=== PATIENT | female | born 1960 | race African-American/Black ===

== ENCOUNTER 2017-03-15 12:06 | Emergency (ER) ==
[2017-03-15 12:11] VITALS: BP 123/84; TEMP 97; BMI 30.7
--- NOTE | 2017-03-15 12:23 | ED.PDOC ---
General ED Provider: Dr. VERONIQUE GARCÍA-ER Chief Complaint: Eye Problem Stated Complaint: my eye is sore and red--this is the 3rd time this has happened --im afraid i have a corneal ulcer and i usually get vigimox for it-- no foreign landers sensation Time Seen by Physician: 12:22 Mode of Arrival: Walk-In Information Source: Patient Exam Limitations: No limitations Nursing and Triage Documentation Reviewed and Agree: Yes EENT Complaint Exam - Eye Complaint/Exam Onset/Duration: several hours Symptoms Are: Still present Timing: Constant Initial Severity: Mild Current Severity: Mild Location: Discreet, Left Character: Reports: Dull. Denies: Sharp, Throbbing, Foreign body sensation Aggravating: Denies: None, Light, Eye drops, Contact lens, Blinking, Ultraviolet exposure Alleviating: Reports: None Associated Signs and Symptoms: Denies: Photophobia, Clear drainage, Purulent drainage, Vision impairment, Fever, Swelling Related History: Reports: Similar episode Eye Surgical History: Reports: None Penetrating Injury Risk Factors: None Globe Rupture Risk Factors: None Acute Glaucoma Risk Factors: None Optic Artery Occlusion Risk Factors: None Visual Field: Normal Extraocular Movement: Normal Orbit Findings: Normal Globe Findings: Intact Lid Findings: Normal Conjunctival Findings: Red, Exudate Corneal Findings: Clear Fluorescein Uptake: No Fundi: Normal Slit Lamp Used: No Differential Diagnoses: Conjunctivitis, Keratitis, Uveitis Review of Systems - Review Of Systems Constitutional: Reports: No symptoms Eyes: Reports: Drainage, Inflammation, Pain, Glasses. Denies: Foreign body sensation, Photophobia, Previous injury, Shadows, Tunnel vision, Contact lenses , Other Ears, Nose, Mouth, Throat: Reports: No symptoms Respiratory: Reports: No symptoms Cardiac: Reports: No symptoms GI: Reports: No symptoms : Reports: No symptoms Musculoskeletal: Reports: No symptoms Skin: Reports: No symptoms Neurological: Reports: No symptoms Endocrine: Reports: No symptoms Hematologic/Lymphatic: Reports: No symptoms All Other Systems: Reviewed and Negative Past Medical History - Past Medical History Previously Healthy: Yes Endocrine: Reports: Unknown Cardiovascular: Reports: Unknown Respiratory: Reports: Unknown Hematological: Reports: Unknown Gastrointestinal: Reports: Unknown Genitourinary: Reports: Unknown Neuro/Psych: Reports: Unknown Musculoskeletal: Reports: Unknown Cancer: Reports: Unknown Last Menstrual Period: NONE - Surgical History General Surgical History: Reports: Unknown - Family History Family History: Reports: Unknown - Social History Smoking Status: Current every day smoker, Heavy tobacco smoker Hx Substance Use: No Alcohol Screening: None Lives: With family Physical Exam - Physical Exam Appearance: Well-appearing, No pain distress, Well-nourished Eyes: MADY, EOMI, Conjunctiva inflammed ENT: Ears normal, Nose normal, Oropharynx normal Neck: Supple Respiratory: Airway patent, Breath sounds clear, Breath sounds equal, Respirations nonlabored Cardiovascular: RRR GI/: Soft Musculoskeletal: Normal strength, ROM intact, No edema, No calf tenderness Skin: Warm, Dry, Normal color Neurological: Sensation intact, Motor intact, Reflexes intact, Cranial nerves intact, Alert, Oriented Psychiatric: Affect appropriate, Mood appropriate Critical Care Note - Critical Care Note Total Time (mins): 0 Course - Course Vital Signs: Temp Pulse Resp BP Pulse Ox 03/15/17 12:07 97.0 F L 87 18 123/84 93 L Departure - Departure Time of Disposition: 12:24 Disposition: HOME SELF-CARE Discharge Problem: Conjunctivitis Qualifiers: Conjunctivitis type: blepharoconjunctivitis Blepharoconjunctivitis type: unspecified Laterality: left Qualifier Code: (H10.502) Unspecified blepharoconjunctivitis, left eye Instructions: Conjunctivitis (ED) Condition: Good Pt referred to PMD for follow-up: Yes Additional Instructions: VIGAMOX 1 DROP INTO THE EYE TID X 7DAYS..F/U [facility] IN 24HRS IF NOT RESOLVING Allergies/Adverse Reactions: Allergies No Known Allergies Allergy (Verified 03/15/17 12:11) Home Medications: Ambulatory Orders Lisinopril [Zestril] 5 mg PO DAILY 03/15/17 Disposition Discussed With: Patient
== END 2017-03-15 12:33 | disposition home or self-care (01) ==
LOC: ED 12:06
DX: H10.502 Unspecified blepharoconjunctivitis, left eye (principal); F17.210 Nicotine dependence, cigarettes, uncomplicated
CPT/HCPCS: 99282